=== PATIENT | female | born 1975 | race Two or more races ===

== ENCOUNTER → 2023-03-31 | Outpatient (CLI) | payer BC ==
[2023-03-31 07:35] LABS: BASO # 0.1 10^3/uL (0.0-0.2); BASO % 0.9 % (0.0-1.0); EOS # 0.4 10^3/uL (0.0-0.5); EOS % 6.6 % (0.0-3.0); HEMOGLOBIN 14.2 g/dl (12.0-15.5); LYMPH % 30.6 % (24.0-44.0); MEAN CORPUSCULAR HEMOGLOBIN 30.5 pg (27.0-33.0); MEAN CORPUSCULAR VOLUME 92.3 fl (80.0-96.0); MONO # 0.4 10^3/uL (0.0-0.8); MONO % 6.2 % (2.0-8.0); NEUTROPHILS # 3.6 10^3/uL (1.5-8.5); NEUTROPHILS % 55.5 % (36.0-66.0); PLATELET COUNT, AUTOMATED 263 10^3/uL (150-450); RED BLOOD COUNT 4.66 10^6/uL (4.00-5.40); WHITE BLOOD COUNT 6.5 10^3/uL (4.0-10.0)
[2023-03-31 07:53] LABS: ALBUMIN 3.8 G/DL (3.2-5.2); ALKALINE PHOSPHATASE 66 U/L (46-116); ALT/SGPT 25 U/L (7.0-40); AST/SGOT 22 U/L (<34); BILIRUBIN,TOTAL 0.6 MG/DL (0.3-1.2); BLOOD UREA NITROGEN 10 MG/DL (9-23); CARBON DIOXIDE LEVEL 28 MMOL/L (20-31); CHLORIDE LEVEL 107 MMOL/L (98-107); CHOLESTEROL LEVEL 172 MG/DL (<200); CHOLESTEROL RISK RATIO 3.54 (<5); GLOMERULAR FILTRATION RATE > 60.0 (>58); GLUCOSE, FASTING 95 MG/DL (60-100); HDL CHOLESTEROL 48.5 MG/DL (>40); LDL CHOLESTEROL 87.7 MG/DL (<100); NON-HDL-C 123.5 MG/DL; SODIUM LEVEL 138 MMOL/L (136-145); TOTAL PROTEIN 7.3 G/DL (5.7-8.2); TRIGLYCERIDES LEVEL 179 MG/DL (<150)
[2023-03-31 07:57] LABS: FREE T4 1.23 NG/DL (0.89-1.76); THYROID STIMULATING HORMONE 1.771 uIU/ML (0.55-4.78)
== END ==
LOC: M LAB 07:03
PROVIDERS: ATTEND Physician Assistant
DX: Z13.6 Encounter for screening for cardiovascular disorders (principal)

== ENCOUNTER → 2023-07-28 | Outpatient (CLI) | payer BC | LOC: M WHC 15:34 | PROVIDERS: ATTEND Nurse Practitioner Women's Health | DX: Z08 Encounter for follow-up examination after completed treatment for malignant neoplasm (principal); Z85.3 Personal history of malignant neoplasm of breast; Z12.31 Encounter for screening mammogram for malignant neoplasm of breast; Z90.11 Acquired absence of right breast and nipple ==

== ENCOUNTER → 2023-08-05 | Outpatient (CLI) | payer BC | LOC: M WHC 14:46 | PROVIDERS: ATTEND Nurse Practitioner Women's Health | DX: R92.2 Inconclusive mammogram (principal); Z85.3 Personal history of malignant neoplasm of breast | CPT/HCPCS: 76641; 77065; G0279 ==

== ENCOUNTER → 2024-04-08 | Day surgery (SDC) | payer BC ==
[~2024-04-08] VITALS: Ht 152.4 cm; Wt 68.3 kg
[~2024-04-08] MED LIST: LIDOCAINE 2% 100MG/5ML SDV (FOR ANES.) As Ordered ONE; NS 1,000 ML IV ONE; ONDA-83; ONDANSETRON 4MG 2ML VIAL As Ordered ONE; propofoL 500 MG/50 ML VIAL As Ordered ONE
[2024-04-08 09:03] VITALS: BP 119/77; TEMP 96.8; O2SAT 95
== END | disposition home or self-care (01) ==
LOC: M OPP 06:36
PROVIDERS: ATTEND Internal Medicine Gastroenterology
DX: Z12.11 Encounter for screening for malignant neoplasm of colon (principal); Z12.12 Encounter for screening for malignant neoplasm of rectum; K57.30 Diverticulosis of large intestine without perforation or abscess without bleeding; D12.4 Benign neoplasm of descending colon; K64.4 Residual hemorrhoidal skin tags; K64.8 Other hemorrhoids; I10 Essential (primary) hypertension; J44.9 Chronic obstructive pulmonary disease, unspecified; Z85.3 Personal history of malignant neoplasm of breast; Z79.899 Other long term (current) drug therapy
CPT/HCPCS: 45385; 88305; J2405

== ENCOUNTER 2024-07-25 00:22 | Emergency (ER) | payer BC ==
[2024-07-25 00:22] VITALS: BP 137/95; TEMP 97.3; O2SAT 96
[~2024-07-25 00:22] MED LIST changes: -LIDOCAINE 2% 100MG/5ML SDV (FOR ANES.) As Ordered ONE; -NS 1,000 ML IV ONE; -ONDANSETRON 4MG 2ML VIAL As Ordered ONE; -propofoL 500 MG/50 ML VIAL As Ordered ONE
[2024-07-25 01:04] LABS: BASO # 0.1 10^3/uL (0.0-0.2); BASO % 0.7 % (0.0-1.0); EOS # 0.7 10^3/uL (0.0-0.5); EOS % 6.1 % (0.0-3.0); HEMATOCRIT 42.4 % (36.0-47.0); HEMOGLOBIN 14.5 g/dl (12.0-15.5); LYMPH # 3.3 10^3/uL (1.5-5.0); LYMPH % 27.7 % (24.0-44.0); MEAN CORPUSCULAR HEMOGLOBIN 31.5 pg (27.0-33.0); MEAN CORPUSCULAR HGB CONC 34.2 g/dl (32.0-36.5); MONO # 0.8 10^3/uL (0.0-0.8); MONO % 6.5 % (2.0-8.0); NEUTROPHILS # 6.9 10^3/uL (1.5-8.5); NEUTROPHILS % 58.7 % (36.0-66.0); PLATELET COUNT, AUTOMATED 307 10^3/uL (150-450); RED BLOOD COUNT 4.61 10^6/uL (4.00-5.40); WHITE BLOOD COUNT 11.7 10^3/uL (4.0-10.0)
[2024-07-25 01:29] LABS: CK-MB VALUE MASS 1.8 NG/ML (<3.6)
[2024-07-25 01:31] LABS: BLOOD UREA NITROGEN 12 MG/DL (9-23); CALCIUM LEVEL 8.6 MG/DL (8.5-10.1); CARBON DIOXIDE LEVEL 26 MMOL/L (20-31); CHLORIDE LEVEL 107 MMOL/L (98-107); CREATININE FOR GFR 0.63 MG/DL (0.55-1.30); GLOMERULAR FILTRATION RATE > 60.0 (>51); GLUCOSE, FASTING 93 MG/DL (60-100); POTASSIUM SERUM 3.9 MMOL/L (3.5-5.1); SODIUM LEVEL 139 MMOL/L (136-145)
[2024-07-25 01:35] LABS: CPK CREATINE PHOSPHOKINASE 154 U/L (34-145); MB/CK RELATIVE INDEX 1.16 (< OR =4)
[2024-07-25] MEDS: FAMOTIDINE 20MG/2ML VIAL IVP ONE (02:34)
[2024-07-25] MEDS: NS 1,000 ML IV ONE (02:34)
[2024-07-25] MEDS ORDERED: ISOVUE-370 76% 100ML VIAL As Ordered ONE (02:58)
[2024-07-25 03:16] LABS: CK-MB VALUE MASS 1.7 NG/ML (<3.6)
[2024-07-25 03:21] LABS: MB/CK RELATIVE INDEX 1.21 (< OR =4)
[2024-07-25] MEDS ORDERED: PRED20TA PO (04:50)
[2024-07-25] MEDS ORDERED: LEVO1TAB40 PO (04:50)
[2024-07-25] MEDS: predniSONE 20 MG TAB PO ONE (04:58)
[2024-07-25] MEDS: LevoFLOXacin 750 MG TABLET PO ONE (04:58)
== END 2024-07-25 05:23 | disposition home or self-care (01) ==
LOC: M ED 00:22
DX: J18.9 Pneumonia, unspecified organism (principal); J45.909 Unspecified asthma, uncomplicated; K21.9 Gastro-esophageal reflux disease without esophagitis
CPT/HCPCS: 71045; 71275; 80048; 82550; 82553; 84484; 85025; 87486; 87581; 87633; 87798; 93005; 93041; 94760; 96361; 96374; 99284; J7512; Q9967; S0028

== ENCOUNTER → 2024-09-22 | Outpatient (CLI) | payer BC ==
[~2024-09-22] MED LIST changes: +LEVO1TAB40 PO; +PRED20TA PO
[2024-09-27 13:22] LABS: HPV APTIMA Not Detected (Not Detected)
== END ==
LOC: M WHC 14:08
PROVIDERS: ATTEND Nurse Practitioner Family
DX: Z12.31 Encounter for screening mammogram for malignant neoplasm of breast (principal); R92.332 Mammographic heterogeneous density, left breast; Z12.4 Encounter for screening for malignant neoplasm of cervix; Z11.51 Encounter for screening for human papillomavirus (HPV); Z90.11 Acquired absence of right breast and nipple
CPT/HCPCS: 77067; 87624; G0123; G0279

== ENCOUNTER → 2024-10-18 | Outpatient (CLI) | payer BC | LOC: M CARPUL 09:56 | DX: R05.8 Other specified cough (principal) ==

== ENCOUNTER → 2024-11-24 | Outpatient (CLI) | payer BC ==
[2024-11-24 12:08] LABS: BASO # 0.1 10^3/uL (0.0-0.2); BASO % 0.7 % (0.0-1.0); EOS # 0.6 10^3/uL (0.0-0.5); EOS % 7.9 % (0.0-3.0); HEMATOCRIT 45.8 % (36.0-47.0); HEMOGLOBIN 15.1 g/dl (12.0-15.5); LYMPH # 2.1 10^3/uL (1.5-5.0); LYMPH % 28.1 % (24.0-44.0); MEAN CORPUSCULAR HEMOGLOBIN 30.5 pg (27.0-33.0); MEAN CORPUSCULAR VOLUME 92.5 fl (80.0-96.0); MONO # 0.4 10^3/uL (0.0-0.8); NEUTROPHILS # 4.3 10^3/uL (1.5-8.5); PLATELET COUNT, AUTOMATED 282 10^3/uL (150-450); RED BLOOD COUNT 4.95 10^6/uL (4.00-5.40); WHITE BLOOD COUNT 7.4 10^3/uL (4.0-10.0)
[2024-11-24 12:28] LABS: HEMOGLOBIN A1c 5.6 % (4.0-6.0)
[2024-11-24 12:45] LABS: THYROID STIMULATING HORMONE 1.397 uIU/ML (0.55-4.78)
[2024-11-24 12:47] LABS: ALBUMIN 3.8 G/DL (3.2-5.2); ALKALINE PHOSPHATASE 80 U/L (35-104); ALT/SGPT 19 U/L (7.0-40); AST/SGOT 19 U/L (<34); BILIRUBIN,TOTAL 0.5 MG/DL (0.3-1.2); BLOOD UREA NITROGEN 11 MG/DL (9-23); CALCIUM LEVEL 9.8 MG/DL (8.5-10.1); CARBON DIOXIDE LEVEL 31 MMOL/L (20-31); CHLORIDE LEVEL 105 MMOL/L (98-107); CHOLESTEROL LEVEL 191 MG/DL (<200); CHOLESTEROL RISK RATIO 3.73 (<5); CREATININE FOR GFR 0.64 MG/DL (0.55-1.30); FREE T4 1.37 NG/DL (0.89-1.76); GLOMERULAR FILTRATION RATE > 60.0 (>51); GLUCOSE, FASTING 115 MG/DL (60-100); HDL CHOLESTEROL 51.2 MG/DL (>40); LDL CHOLESTEROL 82.2 MG/DL (<100); NON-HDL-C 139.8 MG/DL; SODIUM LEVEL 142 MMOL/L (136-145); TOTAL PROTEIN 7.5 G/DL (5.7-8.2); TRIGLYCERIDES LEVEL 288 MG/DL (<150)
== END ==
LOC: M WUC 09:44
DX: I10 Essential (primary) hypertension (principal); E66.9 Obesity, unspecified; R53.82 Chronic fatigue, unspecified

== ENCOUNTER → 2025-01-23 | Outpatient (CLI) | payer BC | LOC: M WUC 10:38 | PROVIDERS: ATTEND Student in an Organized Health Care Education/Training Program | DX: R06.02 Shortness of breath (principal) ==

== ENCOUNTER → 2025-04-03 | Outpatient (CLI) | payer BC ==
[~2025-04-03] MED LIST changes: +PROHANCE 279.3MG/ML 15ML VIAL ONE
== END ==
LOC: M PLAIMG 15:38
PROVIDERS: ATTEND Nurse Practitioner Family
DX: Z85.3 Personal history of malignant neoplasm of breast (principal); Z98.82 Breast implant status; Z90.12 Acquired absence of left breast and nipple
CPT/HCPCS: A9576; C8908

== ENCOUNTER 2025-07-15 10:07 | Inpatient (IN) | payer BC ==
[~2025-07-15] VITALS: Ht 152.4 cm; Wt 69.8 kg
[~2025-07-15 10:07] MED LIST changes: -PROHANCE 279.3MG/ML 15ML VIAL ONE
[2025-07-15 10:57] LABS: VENOUS BASE EXCESS 0.0 (-2.0-2.0); VENOUS HCO3 26.4 MMOL/L (23.0-27.0); VENOUS O2 SATURATION 70.6 % (60.0-80.0); VENOUS PARTIAL PRESSURE CO2 49.5 mmHg (38.0-50.0); VENOUS PARTIAL PRESSURE O2 36.4 mmHg (30.0-50.0); VENOUS PH 7.345 UNITS (7.330-7.430); VENOUS STANDARD HCO3 23.7 MMOL/L; VENOUS TOTAL CO2 27.9 MMOL/L (24.0-28.0)
[2025-07-15 11:12] LABS: BASO # 0.0 10^3/uL (0.0-0.2); BASO % 0.3 % (0.0-1.0); EOS # 0.3 10^3/uL (0.0-0.5); EOS % 2.4 % (0.0-3.0); LYMPH # 0.7 10^3/uL (1.5-5.0); LYMPH % 6.3 % (24.0-44.0); MONO # 0.7 10^3/uL (0.0-0.8); MONO % 6.2 % (2.0-8.0); NEUTROPHILS # 9.7 10^3/uL (1.5-8.5); NEUTROPHILS % 84.5 % (36.0-66.0); PLATELET COUNT, AUTOMATED 235 10^3/uL (150-450)
[2025-07-15 11:26] LABS: CALCIUM LEVEL 8.7 MG/DL (8.5-10.1); CARBON DIOXIDE LEVEL 26 MMOL/L (20-31); CHLORIDE LEVEL 104 MMOL/L (98-107); CK-MB VALUE MASS 2.0 NG/ML (<3.6); CREATININE FOR GFR 0.68 MG/DL (0.55-1.30); GLOMERULAR FILTRATION RATE > 90.0 (>51); POTASSIUM SERUM 4.0 MMOL/L (3.5-5.1); SODIUM LEVEL 142 MMOL/L (136-145)
[2025-07-15 11:28] LABS: CPK CREATINE PHOSPHOKINASE 112 U/L (34-145); MB/CK RELATIVE INDEX 1.78 (< OR =4)
[2025-07-15] MEDS: ACETAMINOPHEN 325 MG TAB PO ONE (11:50)
[2025-07-15] MEDS: NS 500 ML IV ONE (11:50)
[2025-07-15] MEDS: IPRATROPIUM 0.5 MG/ALBUTEROL 2.5 MG INH SOL UD 3 ML NEB ONE (11:53)
[2025-07-15] MEDS: ALBUTEROL SULFATE 2.5 MG/0.5 ML INH CONCENTRATE NEB SOLN INH ONE (11:53)
[2025-07-15] MEDS: cefTRIAXone SOD 2 GM in DEXTROSE 5% (D5W) ADV/MINI-BAG 50 ML IV ONE (11:59)
[2025-07-15 12:02] LABS: ALT/SGPT 28 U/L (7.0-40); AST/SGOT 33 U/L (<34); MAGNESIUM LEVEL 1.8 MG/DL (1.8-2.4)
[2025-07-15 12:27] LABS: CK-MB VALUE MASS 2.1 NG/ML (<3.6)
[2025-07-15 12:29] LABS: CPK CREATINE PHOSPHOKINASE 110.0 U/L (34-145); MB/CK RELATIVE INDEX 1.9 (< OR =4)
[2025-07-15] MEDS ORDERED: BUDESONIDE 180 MCG INHALER INH SCH (13:30)
[2025-07-15] MEDS: MONTELUKAST 10 MG TAB PO ONE (13:30)
[2025-07-15] MEDS: guaiFENesin ER TABLET 600 MG TAB PO SCH (13:30)
[2025-07-15] MEDS: CETIRIZINE 10 MG TAB PO ONE (13:30)
[2025-07-15] MEDS ORDERED: IPRA0.00 INH (13:52)
[2025-07-15] MEDS ORDERED: BUDE10.3 INH (13:52)
[2025-07-15] MEDS ORDERED: ALBU8.5H INH (13:52)
[2025-07-15] MEDS ORDERED: HOME MED LIST COMPLETE! XX SCH (13:55)
[2025-07-15] MEDS: DOXYCYCLINE HYCLATE 100 MG TABLET PO SCH (14:00)
[2025-07-15] MEDS ORDERED: ISOVUE-370 76% 100 ML VIAL As Ordered ONE (14:36)
[2025-07-15] MEDS ORDERED: NALOXONE INJ 0.4 MG/1 ML VIAL IV PRN (14:45)
[2025-07-15] MEDS ORDERED: MORPHINE 2 MG/ML 1 ML VIAL IV PRN (14:45)
[2025-07-15] MEDS ORDERED: NITROGLYCERIN 0.4 MG SUBL TABLET SL PRN (14:45)
[2025-07-15] MEDS: LEVALBUTEROL 1.25 MG 0.5ML CONCENTRATE NEB INH SCH (15:36)
[2025-07-15] MEDS: IPRATROPIUM 0.5 MG/2.5 ML (0.02%) SOLN NEB INH SCH (15:36)
[2025-07-15] MEDS: ACETAMINOPHEN 500 MG TAB PO ONE (16:57)
[2025-07-15 17:30] VITALS: BP 139/93; TEMP 97.5; O2SAT 92
[2025-07-15] MEDS: SYMBICORT 160/4.5MCG INHALER 6GM INH SCH (19:27)
[2025-07-15 20:04] VITALS: BP 141/92; TEMP 97.9; O2SAT 92
[2025-07-16 05:17] VITALS: BP 141/91; TEMP 97.9; O2SAT 97
[2025-07-16] MEDS: MONTELUKAST 10 MG TAB PO SCH (08:07)
[2025-07-16] MEDS: CETIRIZINE 10 MG TAB PO SCH (08:08)
[2025-07-16] MEDS: ACETAMINOPHEN 325 MG TAB PO PRN (08:14)
[2025-07-16] MEDS: ACETAMINOPHEN 500 MG TAB PO ONE (13:34)
[2025-07-16] MEDS: cefTRIAXone SOD 2 GM in DEXTROSE 5% (D5W) ADV/MINI-BAG 50 ML IV SCH (13:35)
[2025-07-16 14:50] VITALS: BP 131/92; TEMP 97.9; O2SAT 92
[2025-07-16 19:34] VITALS: BP 133/90; TEMP 97.9; O2SAT 98
[2025-07-17 05:41] VITALS: BP 157/96; TEMP 97.9; O2SAT 92
[2025-07-17 14:00] VITALS: BP 154/90; TEMP 97.9; O2SAT 92
[2025-07-17 17:40] VITALS: BP 136/78
[2025-07-17 19:22] LABS: COMPLEMENT C4 29.1 MG/DL (12-36); RHEUMATOID FACTOR QUANT 4.4 IU/ML (<14)
[2025-07-17] MEDS ORDERED: predniSONE 20 MG TAB PO SCH (21:00)
[2025-07-17 21:10] VITALS: BP 146/101; TEMP 97.7; O2SAT 92
[2025-07-17 21:35] VITALS: BP 145/97; TEMP 97.9; O2SAT 93
[2025-07-18 06:12] VITALS: BP 144/97; TEMP 97.7; O2SAT 94
[2025-07-18 07:20] LABS: BASO # 0.0 10^3/uL (0.0-0.2); BASO % 0.1 % (0.0-1.0); EOS # 0.0 10^3/uL (0.0-0.5); EOS % 0.0 % (0.0-3.0); LYMPH # 1.3 10^3/uL (1.5-5.0); LYMPH % 8.7 % (24.0-44.0); MONO # 0.6 10^3/uL (0.0-0.8); MONO % 3.9 % (2.0-8.0); NEUTROPHILS # 13.2 10^3/uL (1.5-8.5); NEUTROPHILS % 86.8 % (36.0-66.0); PLATELET COUNT, AUTOMATED 260 10^3/uL (150-450)
[2025-07-18 07:28] LABS: ESTIMATED AVERAGE GLUCOSE 120.0 MG/DL (60-110)
[2025-07-18 08:05] LABS: ERYTHROCYTE SEDIMENTATION RATE 26 mm/hr (0-30)
[2025-07-18 08:29] LABS: ALT/SGPT 33 U/L (7.0-40); AST/SGOT 16 U/L (<34); C REACTIVE PROTEIN QUANTITATIV 0.76 MG/DL (<1.0); CALCIUM LEVEL 9.1 MG/DL (8.5-10.1); CARBON DIOXIDE LEVEL 24 MMOL/L (20-31); CHLORIDE LEVEL 108 MMOL/L (98-107); CHOLESTEROL LEVEL 169 MG/DL (<200); CHOLESTEROL RISK RATIO 2.56 (<5); CREATININE FOR GFR 0.57 MG/DL (0.55-1.30); GLOMERULAR FILTRATION RATE > 90.0 (>51); LDL CHOLESTEROL 79.4 MG/DL (<100); NON-HDL-C 103.0 MG/DL; POTASSIUM SERUM 4.2 MMOL/L (3.5-5.1); SODIUM LEVEL 144 MMOL/L (136-145); TRIGLYCERIDES LEVEL 118 MG/DL (<150)
[2025-07-18] MEDS: CEFDINIR 300 MG CAP PO SCH (08:30)
[2025-07-18] MEDS ORDERED: MONT10TA97 PO (11:00)
[2025-07-18] MEDS ORDERED: CEFD300CAP PO (11:00)
[2025-07-18] MEDS ORDERED: CETI10TA PO (11:00)
[2025-07-18] MEDS ORDERED: MUCI600T31 PO (11:00)
[2025-07-18] MEDS ORDERED: DOXY100T PO (11:00)
[2025-07-18] MEDS ORDERED: VENTAER INH (11:01)
[2025-07-18] MEDS ORDERED: CARA1TAB6 PO (11:08)
[2025-07-18] MEDS ORDERED: PRIL20TA2 PO (11:08)
[2025-07-18] MEDS ORDERED: PRED10TA2 PO (11:08)
[2025-07-18] MEDS ORDERED: predniSONE 20 MG TAB PO SCH (21:00)
[2025-07-21 01:48] LABS: ANTI CENTROMERE ANTIBODY <1.0 NEG AI (<1.0 NEG); ANTI SCLERODERMA ANTIBODIES <1.0 NEG AI (<1.0 NEG); RNP ANTIBODY <1.0 NEG AI (<1.0 NEG); SSA SJOGRENS A <1.0 NEG AI (<1.0 NEG); SSB SJOGRENS B <1.0 NEG AI (<1.0 NEG)
[2025-07-22 11:03] LABS: ANTI DS-DNA AB Positive (Negative)
[2025-07-22 11:27] LABS: ANTI DS-DNA TITER 1:160 titer (<1:10)
[2025-07-24 00:57] LABS: RNA POLYMERASE III IgG AB < 20 Units (<20)
== END 2025-07-18 14:40 | disposition home or self-care (01) | DRG 720 ==
LOC: M ED 10:07 → M ED INP 13:26 → M MS5PR 17:30
PROVIDERS: ADMIT General Practice; ATTEND General Practice
DX: A41.89 Other specified sepsis (principal); J96.01 Acute respiratory failure with hypoxia; E66.9 Obesity, unspecified; Z68.30 Body mass index [BMI] 30.0-30.9, adult; F41.9 Anxiety disorder, unspecified; I10 Essential (primary) hypertension; Z86.16 Personal history of COVID-19; Z85.3 Personal history of malignant neoplasm of breast; Z92.21 Personal history of antineoplastic chemotherapy; G47.33 Obstructive sleep apnea (adult) (pediatric); R07.9 Chest pain, unspecified; R00.0 Tachycardia, unspecified; K80.20 Calculus of gallbladder without cholecystitis without obstruction; J12.89 Other viral pneumonia; Z79.899 Other long term (current) drug therapy; J98.4 Other disorders of lung

== ENCOUNTER → 2025-08-14 | Outpatient (CLI) | payer BC ==
[~2025-08-14] MED LIST changes: +ALBU8.5H INH; +BUDE10.3 INH; +CARA1TAB6 PO; +CEFD300CAP PO; +CETI10TA PO; +DOXY100T PO; +IPRA0.00 INH; +MONT10TA97 PO; +MUCI600T31 PO; +PRED10TA2 PO; +PRIL20TA2 PO; +VENTAER INH
[2025-08-14 14:03] LABS: BASO # 0.0 10^3/uL (0.0-0.2); BASO % 0.6 % (0.0-1.0); EOS # 0.2 10^3/uL (0.0-0.5); EOS % 3.2 % (0.0-3.0); LYMPH # 1.8 10^3/uL (1.5-5.0); LYMPH % 27.3 % (24.0-44.0); MONO # 0.6 10^3/uL (0.0-0.8); MONO % 8.4 % (2.0-8.0); NEUTROPHILS # 4.0 10^3/uL (1.5-8.5); NEUTROPHILS % 60.3 % (36.0-66.0); PLATELET COUNT, AUTOMATED 251 10^3/uL (150-450)
[2025-08-14 14:11] LABS: IMMUNOGLOBULIN E 56.6 IU/ML (0-378)
== END ==
LOC: M PLALAB 09:24
PROVIDERS: ATTEND Physician Assistant
DX: R06.02 Shortness of breath (principal); R91.8 Other nonspecific abnormal finding of lung field

== ENCOUNTER → 2025-11-08 | Outpatient (CLI) | payer BC | LOC: M PLAIMG 13:47 | PROVIDERS: ATTEND Physician Assistant | DX: R06.02 Shortness of breath (principal); R91.8 Other nonspecific abnormal finding of lung field ==